=== PATIENT | male | born 1955 | race Native Hawaiian/Other Pacific Islander ===

== ENCOUNTER 2019-07-18 08:31 | Outpatient (CLI) | payer BC | END 2019-07-18 23:59 | disposition home or self-care (01) | LOC: RESP 08:31 | DX: R06.09 Other forms of dyspnea (principal) ==

== ENCOUNTER 2022-10-27 15:25 | Outpatient (CLI) | payer OTHER | END 2022-10-27 19:40 | disposition home or self-care (01) | LOC: RAD 15:25 | PROVIDERS: ATTEND Nurse Practitioner | DX: R05.3 Chronic cough (principal) ==

== ENCOUNTER 2023-01-04 10:43 | Outpatient (CLI) | payer OTHER | END 2023-01-04 19:07 | disposition home or self-care (01) | LOC: US 10:43 | PROVIDERS: ATTEND Internal Medicine | DX: M79.604 Pain in right leg (principal); M54.17 Radiculopathy, lumbosacral region; M25.551 Pain in right hip ==